=== PATIENT | female | born 1935 | race Caucasian/White ===

== ENCOUNTER 2017-06-26 21:17 | Emergency (ER) | payer MEDICARE, BC ==
--- NOTE | 2017-06-26 21:30 | EDM.PDOC ---
ED HPI GENERAL MEDICAL PROBLEM - General Chief Complaint: Chest Pain Stated Complaint: CHEST PAIN Time Seen by Provider: 06/26/17 21:17 Source of Information: Reports: Patient, Family History Limitations: Reports: No Limitations - History of Present Illness INITIAL COMMENTS - FREE TEXT/NARRATIVE: 82 y.o.w.f. came to the ed by family due to CP. Pt was seen yesterday for same in the clinic. pt walks 5 miles daily, has DM. chest pain is worse when she takes a deep breath. yesterday, her pain was at her right chest and today, her pain is on the left. pain is about 5/10. No dizziness, lightheadedness, N/D or diarrhea of any other acute medical issues. 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 Cardiac risk factors: DM. Onset: Today Onset Date: 06/26/17 Onset Time: 12:00 Duration: Getting Worse, Intermittent Location: Reports: Chest Quality: Reports: Dull Severity: Mild Improves with: Reports: Immobilization, Rest Worsens with: Reports: Breathing, Movement Context: Reports: Other (severe kyphosis) - Related Data Allergies Allergy/AdvReac Type Severity Reaction Status Date / Time No Known Allergies Allergy Verified 06/27/17 00:29 Home Meds: Home Meds Amitriptyline [Elavil] 75 mg PO BEDTIME 09/17/13 [History] Gabapentin [Gralise] 1 each PO BID 09/17/13 [History] Levothyroxine Sodium [Synthroid] 40 mcg PO ACBRK 09/17/13 [History] metFORMIN [Glucophage] 1,000 mg PO DAILY 09/17/13 [History] Losartan [Cozaar] 50 mg PO DAILY 06/26/17 [History] Nitroglycerin 0.4 mg SL ASDIRECTED 06/26/17 [History] atorvaSTATin [Lipitor] 10 mg PO DAILY 06/26/17 [History] ED ROS GENERAL - Review of Systems Review Of Systems: See Below Constitutional: Reports: No Symptoms HEENT: Reports: No Symptoms Respiratory: Reports: No Symptoms Cardiovascular: Reports: Chest Pain Endocrine: Reports: No Symptoms GI/Abdominal: Reports: No Symptoms : Reports: No Symptoms Musculoskeletal: Reports: No Symptoms Skin: Reports: No Symptoms Neurological: Reports: No Symptoms Psychiatric: Reports: No Symptoms Hematologic/Lymphatic: Reports: No Symptoms ED EXAM, GENERAL - Physical Exam Exam: See Below Exam Limited By: No Limitations General Appearance: Alert, WD/WN, No Apparent Distress, Thin Eye Exam: Bilateral Eye: Normal Inspection Ears: Normal External Exam Ear Exam: Bilateral Ear: Auricle Normal Nose: Normal Inspection, Normal Mucosa Throat/Mouth: Normal Inspection, Normal Lips Head: Atraumatic, Normocephalic Neck: Normal Inspection, Supple, Non-Tender Respiratory/Chest: No Respiratory Distress, Lungs Clear, Normal Breath Sounds Cardiovascular: Normal Peripheral Pulses, Regular Rate, Rhythm, No Edema, No JVD , No Murmur Peripheral Pulses: 1+: Femoral (L), Femoral (R) GI/Abdominal: Normal Bowel Sounds, Soft, Non-Tender (Female) Exam: Deferred Rectal (Female) Exam: Deferred Back Exam: Normal Inspection, Full Range of Motion Extremities: Normal Inspection, Normal Range of Motion, Non-Tender, No Pedal Edema, Normal Capillary Refill, Other (severe thoragic kyphosis) Neurological: Alert, Oriented, CN II-XII Intact, Normal Cognition, Normal Gait Psychiatric: Normal Affect Skin Exam: Warm Lymphatic: No Adenopathy EKG INTERPRETATION EKG Date: 06/26/17 Time: 21:25 Rhythm: NSR Rate (Beats/Min): 70 [place]: Normal P-Wave: Present QRS: Normal ST-T: Normal QT: Normal Comparison: NA - No Prior EKG Course - Vital Signs Text/Narrative:: 82 y.o.w.f. came to the ed by family due to CP. Pt was seen yesterday for same in the clinic. pt walks 5 miles daily, has DM. chest pain is worse when she takes a deep breath. yesterday, her pain was at her right chest and today, her pain is on the left. pain is about 5/10. No dizziness, lightheadedness, N/D or diarrhea of any other acute medical issues. 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 Cardiac risk factors: DM. Pt is scheduled for Exhocardion gram on 07/16/2017 PE: Well appearing, thin 82 y.o.w.f NAD Labs: CBC and BMO nl exept, BUN/Cr ration is elevated Imaging: CXR NAD Impression: Atypical chest pain, Tx: Ultram Reexam: pain subsided. Plan: D/C with instructions Last Recorded V/S: Last Vital Signs Temp 36.6 C 06/26/17 21:30 Pulse 76 06/26/17 23:00 Resp 17 06/26/17 23:00 BP 148/72 H 06/26/17 23:00 Pulse Ox 100 06/26/17 23:00 - Orders/Labs/Meds Orders: Active Orders 24 hr Category Date Time Status Chest 2V [CR] Stat Exams 06/26/17 21:28 Taken Labs: Laboratory Tests 06/26/17 06/26/17 06/26/17 Range/Units 21:45 21:45 21:45 WBC 7.9 (4.5-12.0) X10-3/uL RBC 3.73 (3.23-5.20) x10(6)uL Hgb 11.5 (11.5-15.5) g/dL Hct 33.8 (30.0-51.3) % MCV 90.7 (80-96) fL MCH 31.0 (27.7-33.6) pg MCHC 34.1 (32.2-35.4) g/dL RDW 12.1 (11.5-15.5) % Plt Count 288 (125-369) X10(3)uL MPV 7.8 (7.4-10.4) fL Neut % (Auto) 55.3 (46-82) % Lymph % (Auto) 32.4 (13-37) % [place] % (Auto) 9.0 (4-12) % Eos % (Auto) 3 (1.0-5.0) % Baso % (Auto) 1 (0-2) % Neut # (Auto) 4.4 (1.6-8.3) # Lymph # (Auto) 2.5 (0.6-5.0) # [place] # (Auto) 0.7 (0.0-1.3) # Eos # (Auto) 0.2 (0.0-0.8) # Baso # (Auto) 0.1 (0.0-0.2) # PT 9.9 (8.7-11.1) INR 0.98 (0.89-1.13) D-Dimer, Quantitative (100-400) ng/mL Sodium 134 L (135-145) mmol/L Potassium 4.5 (3.5-5.3) mmol/L Chloride 100 (100-110) mmol/L Carbon Dioxide 25 (23-29) mmol/L BUN 19 (8-23) mg/dL Creatinine 0.8 (0.6-1.3) mg/dL Est Cr Clr Drug Dosing TNP Estimated GFR (MDRD) > 60 (>60) BUN/Creatinine Ratio 23.8 H (9-20) Glucose 164 H (80-116) mg/dL Calcium 9.4 (8.6-10.2) mg/dL Troponin I (0.02-0.06) NG/ML 06/26/17 06/26/17 Range/Units 21:45 21:45 WBC (4.5-12.0) X10-3/uL RBC (3.23-5.20) x10(6)uL Hgb (11.5-15.5) g/dL Hct (30.0-51.3) % MCV (80-96) fL MCH (27.7-33.6) pg MCHC (32.2-35.4) g/dL RDW (11.5-15.5) % Plt Count (125-369) X10(3)uL MPV (7.4-10.4) fL Neut % (Auto) (46-82) % Lymph % (Auto) (13-37) % [place] % (Auto) (4-12) % Eos % (Auto) (1.0-5.0) % Baso % (Auto) (0-2) % Neut # (Auto) (1.6-8.3) # Lymph # (Auto) (0.6-5.0) # [place] # (Auto) (0.0-1.3) # Eos # (Auto) (0.0-0.8) # Baso # (Auto) (0.0-0.2) # PT (8.7-11.1) INR (0.89-1.13) D-Dimer, Quantitative 181 (100-400) ng/mL Sodium (135-145) mmol/L Potassium (3.5-5.3) mmol/L Chloride (100-110) mmol/L Carbon Dioxide (23-29) mmol/L BUN (8-23) mg/dL Creatinine (0.6-1.3) mg/dL Est Cr Clr Drug Dosing Estimated GFR (MDRD) (>60) BUN/Creatinine Ratio (9-20) Glucose (80-116) mg/dL Calcium (8.6-10.2) mg/dL Troponin I < 0.01 L (0.02-0.06) NG/ML Meds: Medications Discontinued Medications Generic Name Dose Route Start Last Admin Trade Name Jayden PRN Reason Stop Dose Admin Tramadol HCl 100 mg 06/26/17 22:43 06/26/17 22:52 Ultram PO 06/26/17 22:44 100 mg ONETIME ONE Administration Tramadol HCl 50 mg 06/26/17 22:48 06/26/17 22:54 Ultram PO 06/26/17 22:49 Not Given ONETIME ONE Departure - Departure Time of Disposition: 22:28 Disposition: Home, Self-Care 01 Condition: Good Clinical Impression: Dehydration, Atypical chest pain Kyphosis Qualifiers: Kyphosis type: unspecified Spinal region: cervicothoracic Qualified Code(s): M40.203 - Unspecified kyphosis, cervicothoracic region Instructions: Nonspecific Chest Pain Referrals: Kelvin Farias MD [Primary Care Provider] - Forms: ED Department Discharge Additional Instructions: Please increase water intake, please take tylonol for pain, please continue your meds, please come back if your symptoms get worse acutely. - My Orders Last 24 Hours: My Active Orders 06/26/17 21:28 Chest 2V [CR] Stat - Assessment/Plan Last 24 Hours: My Active Orders 06/26/17 21:28 Chest 2V [CR] Stat
[2017-06-26] MEDS ORDERED: traMADol 50 MG Tab PO ONE ×2 (22:43→22:48)
[2017-06-27 00:33] VITALS: BP 148/72
--- NOTE | 2017-07-02 09:28 | CR ---
INDICATION: Chest pain. CHEST: PA and lateral views of the chest revealed the heart to be normal in size and shape. The aorta is tortuous with calcification in the arch. Diminished bone density is noted, compatible with osteoporosis with somewhat accentuated dorsal kyphosis in the upper thoracic spine. Moderate hypertrophic degenerative changes are noted in the upper thoracic spine, minimal in the lower thoracic spine. Prominent AP diameter, hyperaeration, and flattened diaphragm leaf suggest COPD. Some areas of slightly heavy markings are compatible with pulmonary fibrosis. A definite active infiltrate or effusion was not identified. Apical plural scarring is noted, especially on the right. IMPRESSION: 1. No definite acute process - no definite active infiltrate or effusion. 2. ASD aorta. 3. COPD. 4. Osteoporosis, DJD, kyphosis. 5. Mild pulmonary fibrosis. MTDD
== END 2017-06-26 23:00 | disposition home or self-care (01) ==
LOC: FB.ED 21:17
DX: R07.89 Other chest pain (principal); M40.203 Unspecified kyphosis, cervicothoracic region; E86.0 Dehydration; Z79.899 Other long term (current) drug therapy
CPT/HCPCS: 36415; 71020; 80048; 84484; 85025; 85379; 85610; 99285; A9270; 99283

== ENCOUNTER 2017-07-07 15:07 | Emergency (ER) | payer MEDICARE, BC ==
[2017-07-07] MEDS ORDERED: Pantoprazole 40 MG Vial IVPUSH ONE (15:18)
[2017-07-07] MEDS ORDERED: Ketorolac 30 MG/ML SDV IVPUSH STA (15:18)
[2017-07-07] MEDS: Sodium Chloride 0.9% 10 ML Syringe FLUSH PRN ×2 (15:35→15:41)
[2017-07-07] MEDS ORDERED: Aluminum Hydroxide/Magnesium Hydroxide Susp 30 ML Cup PO STA (15:37)
--- NOTE | 2017-07-07 15:45 | EDM.PDOC ---
ED HPI GENERAL MEDICAL PROBLEM - General Stated Complaint: chest pain Time Seen by Provider: 07/07/17 15:07 Source of Information: Reports: Patient, Family History Limitations: Reports: No Limitations - History of Present Illness INITIAL COMMENTS - FREE TEXT/NARRATIVE: 82 y.o.w.f with h/o NIDDM came to the ed () with non radiating SSCP. Pt has chest pain off and on and had multiple work ups in the past. This time, the pain started 3 days ago and subsided after she took some "anti acid"meds. Pain was subsiding. However, pt ate some soup today and felt agian extreme SSCP, not subsiding with Tums. Pt had a BM MATERIALS SCHEDULER, NL, no blood in stool.Her daughter brought her to the ed. Her BP was 155/105 with a pulse of 70 BPM. She is rating her pain as 5/10, no radiating, sharp/burning. Pt is scheduled for and abdominal US on 07/09/2017 at [facility]. Onset Date: 07/07/17 Onset Time: 12:00 Duration: Hour(s): Location: Reports: Chest Quality: Reports: Burning, Pressure Severity: Moderate Improves with: Reports: Medication, Rest Worsens with: Reports: Other (stress) Context: Reports: Other (severe kyphosis) Associated Symptoms: Reports: Chest Pain Treatments MATERIALS SCHEDULER: Reports: Other (see below) (tums) Chest Pain Score (Numeric/FACES): 2 - Related Data Allergies Allergy/AdvReac Type Severity Reaction Status Date / Time No Known Allergies Allergy Verified 07/07/17 15:30 Home Meds: Home Meds Amitriptyline [Elavil] 75 mg PO BEDTIME 09/17/13 [History] Gabapentin [Gralise] 1 each PO BID 09/17/13 [History] Levothyroxine Sodium [Synthroid] 40 mcg PO ACBRK 09/17/13 [History] metFORMIN [Glucophage] 1,000 mg PO DAILY 09/17/13 [History] Losartan [Cozaar] 50 mg PO DAILY 06/26/17 [History] Nitroglycerin 0.4 mg SL ASDIRECTED 06/26/17 [History] atorvaSTATin [Lipitor] 10 mg PO DAILY 06/26/17 [History] Aspirin [Ecotrin] 81 mg PO DAILY 07/07/17 [History] Naproxen Sodium 220 mg PO DAILY PRN 07/07/17 [History] Pantoprazole Sodium [Protonix] 40 mg PO DAILY #10 tablet. 07/07/17 [Rx] Past Medical History Endocrine/Metabolic History: Reports: Other (See Below) Other Endocrine/Metabolic History: Diabetic. PO meds and diet for maintenance Social & Family History - Tobacco Use Smoking Status *Q: Never Smoker Second Hand Smoke Exposure: No - Recreational Drug Use Recreational Drug Use: No ED ROS GENERAL - Review of Systems Review Of Systems: See Below Constitutional: Reports: No Symptoms HEENT: Reports: No Symptoms Respiratory: Reports: No Symptoms Cardiovascular: Reports: Chest Pain Endocrine: Reports: No Symptoms GI/Abdominal: Reports: No Symptoms : Reports: No Symptoms Musculoskeletal: Reports: No Symptoms Skin: Reports: No Symptoms Neurological: Reports: No Symptoms Psychiatric: Reports: No Symptoms Hematologic/Lymphatic: Reports: No Symptoms Immunologic: Reports: No Symptoms ED EXAM, GENERAL - Physical Exam Exam: See Below Exam Limited By: No Limitations General Appearance: Alert, WD/WN, Moderate Distress Eye Exam: Bilateral Eye: Normal Inspection Ears: Normal External Exam Ear Exam: Bilateral Ear: Auricle Normal Nose: Normal Inspection, Normal Mucosa Throat/Mouth: Normal Inspection, Normal Lips Head: Atraumatic, Normocephalic Neck: Normal Inspection, Supple, Non-Tender, Other (severe C and t spine kyphosis) Respiratory/Chest: No Respiratory Distress, Lungs Clear, Normal Breath Sounds Cardiovascular: Normal Peripheral Pulses, Regular Rate, Rhythm, No Edema, No Gallop, No Murmur Peripheral Pulses: 1+: Femoral (L), Femoral (R) GI/Abdominal: Normal Bowel Sounds, Distended (mildly), Tender (epigastric tenderness) (Female) Exam: Deferred Rectal (Female) Exam: Deferred Back Exam: Other (severe kyphosis at C and T spine) Extremities: Normal Inspection, Normal Range of Motion, Non-Tender Neurological: Alert, Oriented, CN II-XII Intact Psychiatric: Normal Affect, Normal Mood Skin Exam: Warm, Dry, Intact, Normal Color, No Rash Lymphatic: No Adenopathy EKG INTERPRETATION EKG Date: 07/07/17 Time: 15:10 Rhythm: NSR Rate (Beats/Min): 76 [place]: Normal P-Wave: Present QRS: Normal ST-T: Normal QT: Normal Comparison: No Change Course - Vital Signs Text/Narrative:: 82 y.o.w.f with h/o NIDDM came to the ed () with non radiating SSCP. Pt has chest pain off and on and had multiple work ups in the past. This time, the pain started 3 days ago and subsided after she took some "anti acid"meds. Pain was subsiding. However, pt ate some soup today and felt agian extreme SSCP, not subsiding with Tums. Pt had a BM MATERIALS SCHEDULER, NL, no blood in stool.Her daughter brought her to the ed. Her BP was 155/105 with a pulse of 70 BPM. She is rating her pain as 5/10, no radiating, sharp/burning. Pt is scheduled for and abdominal US on 07/09/2017 at [facility]. Pt is walking several miles every day. PE: WNWD WF with severe kyphosis, NAD, C/O chest pain. Tender epigastrium. Imaging: US abd. limited showed a minor polyp in her GB. Remainder of the exam was nl. Official report is pending. CXR: NAD Stress Echocardiogram performed at [facility], on 07/05/2017, showed no acute abnormality, EF 70%. ECG: NSR Impression: Gastritis/esophagitis, atypical chest pain, HTN TX: ASA MATERIALS SCHEDULER, Protonic, Toradol, Maalox and Clonidine 0.1 mg Reexam: Pain free on D/C. SBP improved from 180 to 155 on D/C after clonidine was given Last Recorded V/S: Last Vital Signs Temp 36.6 C 07/07/17 17:45 Pulse 78 07/07/17 16:30 Resp 18 07/07/17 17:45 BP 151/78 H 07/07/17 17:45 Pulse Ox 98 07/07/17 17:45 - Orders/Labs/Meds Orders: Active Orders 24 hr Category Date Time Status EKG Documentation Completion [RC] ASDIRECTED Care 07/07/17 15:12 Active Abdomen Ltd [US] Stat Exams 07/07/17 15:41 Taken CXR [Chest 2V] [CR] Stat Exams 07/07/17 15:10 Taken Peripheral IV Insertion Adult [OM.PC] Routine Oth 07/07/17 15:15 Ordered EKG 12 Lead [EK] Routine Ther 07/07/17 15:10 Ordered Labs: Laboratory Tests 07/07/17 07/07/17 07/07/17 Range/Units 15:20 15:20 15:20 WBC 8.8 (4.5-12.0) X10-3/uL RBC 3.92 (3.23-5.20) x10(6)uL Hgb 11.9 (11.5-15.5) g/dL Hct 35.4 (30.0-51.3) % MCV 90.3 (80-96) fL MCH 30.3 (27.7-33.6) pg MCHC 33.6 (32.2-35.4) g/dL RDW 12.2 (11.5-15.5) % Plt Count 284 (125-369) X10(3)uL MPV 7.8 (7.4-10.4) fL Neut % (Auto) 55.8 (46-82) % Lymph % (Auto) 34.2 (13-37) % [place] % (Auto) 7.5 (4-12) % Eos % (Auto) 2 (1.0-5.0) % Baso % (Auto) 0 (0-2) % Neut # (Auto) 4.9 (1.6-8.3) # Lymph # (Auto) 3.0 (0.6-5.0) # [place] # (Auto) 0.7 (0.0-1.3) # Eos # (Auto) 0.2 (0.0-0.8) # Baso # (Auto) 0.0 (0.0-0.2) # PT 9.9 (8.7-11.1) INR 0.98 (0.89-1.13) Sodium 135 (135-145) mmol/L Potassium 4.1 (3.5-5.3) mmol/L Chloride 100 (100-110) mmol/L Carbon Dioxide 26 (23-29) mmol/L BUN 16 (8-23) mg/dL Creatinine 0.8 (0.6-1.3) mg/dL Est Cr Clr Drug Dosing TNP Estimated GFR (MDRD) > 60 (>60) BUN/Creatinine Ratio 20.0 (9-20) Glucose 124 H (80-116) mg/dL Calcium 10.0 (8.6-10.2) mg/dL Total Bilirubin (0.1-1.3) mg/dL Direct Bilirubin (0.1-0.2) mg/dL AST (5-27) IU/L ALT (14-26) IU/L Alkaline Phosphatase (56-112) IU/L Creatine Kinase 51 L (60-160) IU/L Troponin I (0.02-0.06) NG/ML Total Protein (6.0-8.0) g/dL Albumin (3.2-4.6) g/dL 07/07/17 07/07/17 Range/Units 15:20 15:20 WBC (4.5-12.0) X10-3/uL RBC (3.23-5.20) x10(6)uL Hgb (11.5-15.5) g/dL Hct (30.0-51.3) % MCV (80-96) fL MCH (27.7-33.6) pg MCHC (32.2-35.4) g/dL RDW (11.5-15.5) % Plt Count (125-369) X10(3)uL MPV (7.4-10.4) fL Neut % (Auto) (46-82) % Lymph % (Auto) (13-37) % [place] % (Auto) (4-12) % Eos % (Auto) (1.0-5.0) % Baso % (Auto) (0-2) % Neut # (Auto) (1.6-8.3) # Lymph # (Auto) (0.6-5.0) # [place] # (Auto) (0.0-1.3) # Eos # (Auto) (0.0-0.8) # Baso # (Auto) (0.0-0.2) # PT (8.7-11.1) INR (0.89-1.13) Sodium (135-145) mmol/L Potassium (3.5-5.3) mmol/L Chloride (100-110) mmol/L Carbon Dioxide (23-29) mmol/L BUN (8-23) mg/dL Creatinine (0.6-1.3) mg/dL Est Cr Clr Drug Dosing Estimated GFR (MDRD) (>60) BUN/Creatinine Ratio (9-20) Glucose (80-116) mg/dL Calcium (8.6-10.2) mg/dL Total Bilirubin 0.8 (0.1-1.3) mg/dL Direct Bilirubin 0.1 (0.1-0.2) mg/dL AST 18 (5-27) IU/L ALT 15 (14-26) IU/L Alkaline Phosphatase 65 (56-112) IU/L Creatine Kinase (60-160) IU/L Troponin I < 0.01 L (0.02-0.06) NG/ML Total Protein 7.3 (6.0-8.0) g/dL Albumin 4.2 (3.2-4.6) g/dL Meds: Medications Discontinued Medications Generic Name Dose Route Start Last Admin Trade Name Freq PRN Reason Stop Dose Admin Al Hydroxide/Mg Hydroxide 30 ml 07/07/17 15:37 07/07/17 15:40 Mag-Al Susp PO 07/07/17 15:38 30 ml ONETIME STA Administration Clonidine HCl 0.1 mg 07/07/17 16:49 07/07/17 16:58 Catapres PO 07/07/17 16:50 0.1 mg ONETIME ONE Administration Ketorolac Tromethamine 15 mg 07/07/17 15:18 07/07/17 15:35 Toradol IVPUSH 07/07/17 15:19 15 mg ONETIME STA Administration Pantoprazole Sodium 40 mg 07/07/17 15:18 07/07/17 15:40 Protonix Iv IVPUSH 07/07/17 15:19 40 mg ONETIME ONE Administration Sodium Chloride 10 ml 07/07/17 15:39 07/07/17 15:41 Saline Flush FLUSH 10 ml ASDIRECTED PRN Administration Keep Vein Open Sodium Chloride 10 ml 07/07/17 15:59 Saline Flush FLUSH ASDIRECTED PRN Keep Vein Open Departure - Departure Time of Disposition: 17:35 Disposition: Home, Self-Care 01 Condition: Good Clinical Impression: Atypical chest pain, HTN, goal below 130/80 Prescriptions: Pantoprazole Sodium [Protonix] 40 mg PO DAILY #10 tablet.dr Instructions: Esophagogastroduodenoscopy, Hypertension, [id number] Referrals: Kelvin Farias MD [Primary Care Provider] - Forms: ED Department Discharge Additional Instructions: Please f/u with your PMD for BP meds adjustment and possible Endoscopy (upper GI ) procedure. Please take Protonix daily and Maalox 30 cc as soon you experience upper abd. pain/burning. Please come back to the ed if your symptoms get worse acutely. - My Orders Last 24 Hours: My Active Orders 07/07/17 15:10 CXR [Chest 2V] [CR] Stat EKG 12 Lead [EK] Routine 07/07/17 15:12 EKG Documentation Completion [RC] ASDIRECTED 07/07/17 15:15 Peripheral IV Insertion Adult [OM.PC] Routine 07/07/17 15:41 Abdomen Ltd [US] Stat - Assessment/Plan Last 24 Hours: My Active Orders 07/07/17 15:10 CXR [Chest 2V] [CR] Stat EKG 12 Lead [EK] Routine 07/07/17 15:12 EKG Documentation Completion [RC] ASDIRECTED 07/07/17 15:15 Peripheral IV Insertion Adult [OM.PC] Routine 07/07/17 15:41 Abdomen Ltd [US] Stat
[2017-07-07] MEDS ORDERED: Sodium Chloride 0.9% 10 ML Syringe FLUSH PRN (15:59)
[2017-07-07] MEDS ORDERED: cloNIDine 0.1 MG Tab PO ONE (16:49)
[2017-07-07 18:48] VITALS: BP 151/78
--- NOTE | 2017-07-08 11:16 | US ---
INDICATION: Right upper quadrant abdominal pain. RIGHT UPPER QUADRANT/GALLBLADDER ULTRASOUND: Multiple ultrasonic images were obtained 07/07/2017 and revealed the liver to have a normal appearance. There is some minimal cortical irregularity of the right kidney, which was otherwise unremarkable, measuring 9.2 x 3.2 x 4.6 cm. The common bile duct was normal in caliber at 4.9 mm. The gallbladder showed no definite calculi. However, there were filling defects which may represent cholesterolosis and possibly an adherent calculus of small size near the fundus of the gallbladder. This could also represent a polyp. It did not shadow. A negative ultrasonic Glez sign was noted. The pancreas was not well visualized in the area of the tail, but appeared normal proximally, including the proximal to mid body area of the pancreas. The aorta and IVC were not evaluated. IMPRESSION: 1. Findings suggest cholesterolosis, possibly multiple polypoid changes in the mcnamara of the gallbladder. No definite calculi were seen, although one adherent calculus could be present of small size. 2. The distal pancreas was not well seen. 3. Minimal pericardial fluid is suggested. MTDD
--- NOTE | 2017-07-08 11:32 | CR ---
INDICATION: Chest pain on and off for two weeks. CHEST: PA and lateral views of the chest 07/07/2017 were compared with 2016, revealing the heart to be normal in size and shape. The aorta is tortuous with calcification in the arch and descending portion. Accentuated dorsal kyphosis is noted with suggestion of demineralization which is compatible with osteoporosis and should be correlated clinically. Mild hyperaeration, interdigitation of diaphragm leaf on the right, very minimally flattened diaphragm leaves, and prominent AP diameter raise question of COPD, which should be correlated clinically. A definite active infiltrate or effusion was not identified, with markings similar to the previous study of 06/26/2017. Overlying EKG leads are noted. IMPRESSION: Stable chest. No acute process. Findings as noted above. MTDD
== END 2017-07-07 17:55 | disposition home or self-care (01) ==
LOC: FB.ED 15:07
DX: R07.89 Other chest pain (principal); I10 Essential (primary) hypertension; Z79.84 Long term (current) use of oral hypoglycemic drugs; Z79.82 Long term (current) use of aspirin; Z79.899 Other long term (current) drug therapy
CPT/HCPCS: 36415; 71020; 76705; 80048; 80076; 82550; 84484; 85025; 85610; 93005; 96374; 96375; 99284; 99285; A9270; C9113; J1885; J7050

== ENCOUNTER 2021-08-18 07:54 | Emergency (ER) | payer MEDICARE, BC ==
--- NOTE | 2021-08-18 08:44 | EDM.PDOC ---
ED HPI GENERAL MEDICAL PROBLEM - General Chief Complaint: Syncope Stated Complaint: SWOLLEN FOREHEAD Time Seen by Provider: 08/18/21 08:20 Source of Information: Reports: Patient, Family, Old Records, RN History Limitations: Reports: No Limitations - History of Present Illness INITIAL COMMENTS - FREE TEXT/NARRATIVE: 86 yo female presents with a daughter after she was walking several miles that she does often and got weak. She was not able to quickly find a place to sit and ended up falling to the ground striking her forehead. She does not believe that she had LOC, she denies neck pain, nausea, or BALL. She has felt like this before, but was able to sit and recover with her prior episode. She did not feel any CP or SOB. There has not been any recent illness, vomiting, diarrhea, or black stool. She ate cereal before her walk today. She is not on insulin. She thinks there was about 30 sec from the time her sx's began untll she fell. She feels back to normal now. Onset: Today, Sudden Onset Date: 08/18/21 Duration: Minutes:, Resolved Prior to Arrival Location: Reports: Generalized Quality: Reports: Other (pain not reported) Severity: Moderate Improves with: Reports: Other (time) Worsens with: Reports: Other (unsure) Context: Reports: Other (See HPI) Associated Symptoms: Reports: Syncope (near syncope). 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) (none) - Related Data Allergies Allergy/AdvReac Type Severity Reaction Status Date / Time No Known Allergies Allergy Verified 07/07/17 15:30 Home Meds: Home Meds Amitriptyline [Elavil] 75 mg PO BEDTIME 09/17/13 [History] Gabapentin [Gralise] 1 each PO BID 09/17/13 [History] Levothyroxine Sodium [Synthroid] 40 mcg PO ACBRK 09/17/13 [History] metFORMIN [Glucophage] 1,000 mg PO DAILY 09/17/13 [History] Losartan [Cozaar] 50 mg PO DAILY 06/26/17 [History] Nitroglycerin 0.4 mg SL ASDIRECTED 06/26/17 [History] atorvaSTATin [Lipitor] 10 mg PO DAILY 06/26/17 [History] Aspirin [Ecotrin] 81 mg PO DAILY 07/07/17 [History] Naproxen Sodium 220 mg PO DAILY PRN 07/07/17 [History] Pantoprazole Sodium [Protonix] 40 mg PO DAILY #10 tablet. 07/07/17 [Rx] Sulfamethoxazole/Trimethoprim [Bactrim Ds Tablet] 1 each PO Q12H #12 tablet 08/18/21 [Rx] Past Medical History Endocrine/Metabolic History: Reports: Other (See Below) Other Endocrine/Metabolic History: Diabetic. PO meds and diet for maintenance - Past Surgical History GI Surgical History: Reports: Appendectomy ED ROS GENERAL - Review of Systems Review Of Systems: See Below Constitutional: Reports: Weakness (transiet) HEENT: Reports: No Symptoms Respiratory: Reports: No Symptoms Cardiovascular: Reports: Lightheadedness Endocrine: Reports: No Symptoms GI/Abdominal: Reports: No Symptoms : Reports: No Symptoms Musculoskeletal: Reports: No Symptoms Skin: Reports: No Symptoms Neurological: Reports: No Symptoms Psychiatric: Reports: No Symptoms - Physical Exam Exam: See Below Exam Limited By: No Limitations General Appearance: Alert, WD/WN, No Apparent Distress Eye Exam: Bilateral Eye: Normal Inspection Ears: Normal External Exam, Normal Canal, Hearing Grossly Normal Nose: Normal Inspection, No Blood Throat/Mouth: Normal Inspection, Normal Lips, Normal Oropharynx, Normal Voice, No Airway Compromise Head Exam: Atraumatic, Normocephalic Neck: Normal Inspection Respiratory/Chest: No Respiratory Distress, Lungs Clear, Normal Breath Sounds, No Accessory Muscle Use Cardiovascular: Regular Rate, Rhythm, No Edema GI/Abdominal: Soft, Non-Tender, No Distention. No: Distended Extremities: Normal Inspection, Normal Range of Motion, Non-Tender, No Pedal Edema. No: Pedal Edema Psychiatric: Normal Affect, Normal Mood Skin Exam: Warm, Dry, Intact, Normal Color, No Rash Course - Orders/Labs/Meds Orders: Active Orders 24 hr Category Date Time Status CULTURE URINE [RM] Stat Lab 08/18/21 09:22 Ordered Lactated Ringers [Ringers, Lactated] 1,000 ml Med 08/18/21 09:12 Active IV BOLUS Medication Orders Lactated Ringer's (Ringers, Lactated) 1,000 mls @ 999 mls/hr IV BOLUS ONE Stop: 08/18/21 10:12 Last Admin: 08/18/21 09:34 Dose: 999 mls/hr Documented by: [email or web address] Labs: Laboratory Tests 08/18/21 08/18/21 08/18/21 Range/Units 08:54 08:54 08:54 WBC 8.2 (3.0-10.3) x10-3/uL RBC 3.86 (3.60-5.20) x10(6)uL Hgb 11.8 (11.4-15.5) g/dL Hct 35.0 (34.2-48.2) % MCV 90.8 (76.7-100.5) fL MCH 30.5 (23.9-33.9) pg MCHC 33.6 (31.9-34.8) g/dL RDW 12.9 (12.3-16.5) % Plt Count 332 (151-488) x10(3)uL Sodium 137 (135-145) mmol/L Potassium 4.7 (3.5-5.3) mmol/L Chloride 100 (100-110) mmol/L Carbon Dioxide 29 (21-32) mmol/L BUN 28 H (7-18) mg/dL Creatinine 1.2 H (0.55-1.02) mg/dL Est Cr Clr Drug Dosing TNP Estimated GFR (MDRD) 43 L (>60) BUN/Creatinine Ratio 23.3 H (9-20) Glucose 213 H (80-116) mg/dL Calcium 9.2 (8.6-10.2) mg/dL Troponin I (4.0-60.3) pg/mL Urine Color Yellow (YELLOW) Urine Appearance Cloudy (CLEAR) Urine pH 7.0 H (5.0-6.5) Ur Specific Gilman 1.010 (1.010-1.025) Urine Protein Negative (NEGATIVE) mg/dL Urine Glucose (UA) 50 H (NORMAL) mg/dL Urine Ketones Negative (NEGATIVE) mg/dL Urine Occult Blood Negative (NEGATIVE) Urine Nitrite Positive H (NEGATIVE) Urine Bilirubin Negative (NEGATIVE) Urine Urobilinogen Normal (NEGATIVE) mg/dL Ur Leukocyte Esterase Moderate H (NEGATIVE) Urine WBC 75-100 H (0-5) Ur Squamous Epith Cells Few H (NS,R,O) Urine Bacteria Many H (NS) 08/18/21 Range/Units 08:54 WBC (3.0-10.3) x10-3/uL RBC (3.60-5.20) x10(6)uL Hgb (11.4-15.5) g/dL Hct (34.2-48.2) % MCV (76.7-100.5) fL MCH (23.9-33.9) pg MCHC (31.9-34.8) g/dL RDW (12.3-16.5) % Plt Count (151-488) x10(3)uL Sodium (135-145) mmol/L Potassium (3.5-5.3) mmol/L Chloride (100-110) mmol/L Carbon Dioxide (21-32) mmol/L BUN (7-18) mg/dL Creatinine (0.55-1.02) mg/dL Est Cr Clr Drug Dosing Estimated GFR (MDRD) (>60) BUN/Creatinine Ratio (9-20) Glucose (80-116) mg/dL Calcium (8.6-10.2) mg/dL Troponin I 9.5 (4.0-60.3) pg/mL Urine Color (YELLOW) Urine Appearance (CLEAR) Urine pH (5.0-6.5) Ur Specific Gilman (1.010-1.025) Urine Protein (NEGATIVE) mg/dL Urine Glucose (UA) (NORMAL) mg/dL Urine Ketones (NEGATIVE) mg/dL Urine Occult Blood (NEGATIVE) Urine Nitrite (NEGATIVE) Urine Bilirubin (NEGATIVE) Urine Urobilinogen (NEGATIVE) mg/dL Ur Leukocyte Esterase (NEGATIVE) Urine WBC (0-5) Ur Squamous Epith Cells (NS,R,O) Urine Bacteria (NS) Meds: Medications Generic Name Dose Route Start Last Admin Trade Name Freq PRN Reason Stop Dose Admin Lactated Ringer's 1,000 mls @ 999 mls/hr 08/18/21 09:12 08/18/21 09:34 Ringers, Lactated IV 08/18/21 10:12 999 mls/hr BOLUS ONE Administration Departure - Departure Time of Disposition: 10:30 Disposition: Home, Self-Care 01 Condition: Fair Clinical Impression: Near syncope, Mild dehydration, Cystitis - Discharge Information *PRESCRIPTION DRUG MONITORING PROGRAM REVIEWED*: Not Applicable *COPY OF PRESCRIPTION DRUG MONITORING REPORT IN PATIENT EZEQUIEL: Not Applicable Prescriptions: Sulfamethoxazole/Trimethoprim [Bactrim Ds Tablet] 1 each PO Q12H #12 tablet Referrals: Kelvin Farias MD [Primary Care Provider] - Forms: ED Department Discharge Additional Instructions: Take Bactrim every 12 hrs until gone or until you are directed to stop. Avoid walking alone untll you get this issue worked out. 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 Return as needed. Keep your wound clean and apply Bacitracin twice daily. - My Orders Last 24 Hours: My Active Orders 08/18/21 09:12 Lactated Ringers [Ringers, Lactated] 1,000 ml IV BOLUS 08/18/21 09:22 CULTURE URINE [RM] Stat - Assessment/Plan Last 24 Hours: My Active Orders 08/18/21 09:12 Lactated Ringers [Ringers, Lactated] 1,000 ml IV BOLUS 08/18/21 09:22 CULTURE URINE [RM] Stat
[2021-08-18] MEDS ORDERED: Lactated Ringers 1,000 ML IV ONE (09:12)
[2021-08-18] MEDS ORDERED: Bacitracin Oint 1 GM U/D Packet TOP ONE (10:06)
[2021-08-19 20:27] VITALS: BP 151/84; PULSE 85
== END 2021-08-18 10:37 | disposition home or self-care (01) ==
LOC: FB.ED 07:54
DX: R55 Syncope and collapse (principal); N30.90 Cystitis, unspecified without hematuria; E86.0 Dehydration; Z79.82 Long term (current) use of aspirin; Z79.899 Other long term (current) drug therapy
CPT/HCPCS: 36415; 80048; 81001; 84484; 85027; 87086; 87088; 87186; 99284; J7120